=== PATIENT | female | born 1935 | race Caucasian/White ===

== ENCOUNTER 2021-01-11 01:46 | Emergency (ER) | payer OTHER, MEDICARE, MEDICAID ==
[~2021-01-11] VITALS: Ht 172.7 cm; Wt 68.2 kg
[~2021-01-11 01:46] MED LIST: ASPI-1265 PO; ATRNS; CARB15DR95 OP; CHOL100046 PO; CYAN500T71 PO; LISI40TA13 PO; ROSU40TA PO; SERT-434 PO
[2021-01-11 01:59] VITALS: BP 147/52
== END 2021-01-11 03:39 | disposition home or self-care (01) ==
LOC: ER 01:46
DX: B30.9 Viral conjunctivitis, unspecified (principal); R09.89 Other specified symptoms and signs involving the circulatory and respiratory systems; E78.00 Pure hypercholesterolemia, unspecified; E11.9 Type 2 diabetes mellitus without complications; Z85.3 Personal history of malignant neoplasm of breast; Z79.82 Long term (current) use of aspirin; Z79.899 Other long term (current) drug therapy
CPT/HCPCS: 99281

== ENCOUNTER 2022-12-05 15:11 | Day surgery (SDC) | payer OTHER, MEDICARE, MEDICAID ==
[~2022-12-05] VITALS: Ht 171.4 cm; Wt 90.0 kg
[2022-12-05] VITALS (8 sets, daily range): BP systolic 169–190; BP diastolic 72–105
[~2022-12-05 15:11] MED LIST changes: +AMLO2.5T2 PO; -ASPI-1265 PO; +ASPI-611 PO; -ATRNS; -CARB15DR95 OP; +CETI10TA15 PO; -CHOL100046 PO; -CYAN500T71 PO; +DONE10TA11 PO; +FAMO40TA7 PO; +LACT1CAP55 PO; +METF-436 PO
[2022-12-05] MEDS ORDERED: HYDR-3965 PO (15:46)
[2022-12-05] MEDS ORDERED: fentaNYL/PF 50MCG/1 ML 2ML syringe ONE (15:50)
[2022-12-05] MEDS ORDERED: diphenhydrAMINE 50 mg/ml inj ONE (15:51)
[2022-12-05] MEDS ORDERED: iohexol 300mg/ml 100ml inj. ONE (15:51)
[2022-12-05] MEDS ORDERED: LIDOcaine Viscous 15ml cup ONE (15:51)
[2022-12-05] MEDS ORDERED: MIDAZolam 1 MG/ML 5ML VIAL ONE (15:51)
[2022-12-05] MEDS ORDERED: levoFLOXACIN-Levaquin 500mg/D5 100 ML IV ONE (15:52)
[2022-12-05] MEDS ORDERED: glucagon, human recombinant 1mg kit ONE (15:52)
== END 2022-12-05 18:00 | disposition home or self-care (01) ==
LOC: GI LAB 15:11
PROVIDERS: ATTEND Internal Medicine Gastroenterology
DX: C24.0 Malignant neoplasm of extrahepatic bile duct (principal); E11.9 Type 2 diabetes mellitus without complications; F03.90 Unspecified dementia, unspecified severity, without behavioral disturbance, psychotic disturbance, mood disturbance, and anxiety; Z79.899 Other long term (current) drug therapy; Z85.3 Personal history of malignant neoplasm of breast; Z85.05 Personal history of malignant neoplasm of liver; Z90.13 Acquired absence of bilateral breasts and nipples
CPT/HCPCS: 43260; 99153; C1769; G0500; J1200; J1610; J1956; J2250; J3010; J7030; Q9967; Z7512; 99152; A4620; C1889

== ENCOUNTER 2023-01-06 12:39 | Day surgery (SDC) | payer OTHER ==
[~2023-01-06] VITALS: Ht 172.7 cm; Wt 66.7 kg
[~2023-01-06 12:39] MED LIST changes: -AMLO2.5T2 PO; -ASPI-611 PO; -CETI10TA15 PO; -DONE10TA11 PO; +DONE10TA19 PO; +HYDR-3965 PO; -LACT1CAP55 PO; +LACT1TAB6 PO; -LISI40TA13 PO; +METF-1203 PO; -METF-436 PO; -ROSU40TA PO; -SERT-434 PO; +famotidine 20mg tablet PO ONE; +ringers solution, lacted 1,000 ML IV SCH
--- NOTE | 2023-01-06 14:00 | NUR ---
Pt came in for ERCP, shortly after my interview w/pt, she informed us that she had eaten an egg sandwich at 8:45 this morning. Call into Dr Scott dean, surgery cancelled and will have to reschedule. Teaching done w/pt and her daughter w/emphasis on importance of NPO and following the pre-op orders for pt safety. Addendum: 01/06/23 at 1439 by Brenda Wagner RN Amended: Links added.
== END 2023-01-06 14:00 | disposition home or self-care (01) ==
LOC: GI LAB 12:39
PROVIDERS: ATTEND Internal Medicine Gastroenterology
DX: K80.31 Calculus of bile duct with cholangitis, unspecified, with obstruction (principal); Z53.8 Procedure and treatment not carried out for other reasons
CPT/HCPCS: J7120 ×2

== ENCOUNTER 2023-01-10 15:33 | Emergency (ER) | payer OTHER ==
[~2023-01-10] VITALS: Ht 172.7 cm; Wt 61.0 kg
[~2023-01-10 15:33] MED LIST changes: -famotidine 20mg tablet PO ONE; -ringers solution, lacted 1,000 ML IV SCH
[2023-01-10 15:39] VITALS: BP 127/85
[2023-01-10] MEDS ORDERED: lactulose 20gm/30ml cup PO ONE (17:05)
== END 2023-01-10 17:46 | disposition home or self-care (01) ==
LOC: ER 15:34
DX: C22.9 Malignant neoplasm of liver, not specified as primary or secondary (principal); E78.00 Pure hypercholesterolemia, unspecified; I10 Essential (primary) hypertension
CPT/HCPCS: 99284

== ENCOUNTER 2023-01-23 08:43 | Day surgery (SDC) | payer MEDICARE, MEDICAID ==
[2023-01-23] VITALS (8 sets, daily range): BP systolic 118–158; BP diastolic 57–84
[~2023-01-23] VITALS: Ht 172.7 cm; Wt 65.9 kg
[2023-01-23] MEDS ORDERED: MIDAZolam 1 MG/ML 5ML VIAL ONE (11:16)
[2023-01-23] MEDS ORDERED: fentaNYL/PF 50MCG/1 ML 2ML syringe ONE (11:16)
[2023-01-23] MEDS ORDERED: LIDOcaine Viscous 15ml cup ONE (11:16)
[2023-01-23] MEDS ORDERED: diphenhydrAMINE 50 mg/ml inj ONE (11:17)
[2023-01-23] MEDS ORDERED: glucagon, human recombinant 1mg kit ONE (11:17)
[2023-01-23] MEDS ORDERED: levoFLOXACIN-Levaquin 500mg/D5 100 ML IV ONE (11:18)
[2023-01-23] MEDS ORDERED: iohexol 300mg/ml 100ml inj. ONE (11:18)
== END 2023-01-23 15:20 | disposition home or self-care (01) ==
LOC: GI LAB 08:43
PROVIDERS: ATTEND Internal Medicine Gastroenterology
DX: Z46.59 Encounter for fitting and adjustment of other gastrointestinal appliance and device (principal); C24.0 Malignant neoplasm of extrahepatic bile duct; I10 Essential (primary) hypertension; E78.00 Pure hypercholesterolemia, unspecified; F03.90 Unspecified dementia, unspecified severity, without behavioral disturbance, psychotic disturbance, mood disturbance, and anxiety; K21.9 Gastro-esophageal reflux disease without esophagitis; G24.3 Spasmodic torticollis; M19.90 Unspecified osteoarthritis, unspecified site; Z85.3 Personal history of malignant neoplasm of breast; Z90.13 Acquired absence of bilateral breasts and nipples; Z79.899 Other long term (current) drug therapy
CPT/HCPCS: 43276; 74328; 99153; C1726; C1768; C1769; C1889; G0500; J1200; J1956; J2250; J3010; J7030; Q9967; Z7512; Z7610; 99152; A4620; J1610